=== PATIENT | female | born 1990 | race African-American/Black ===

== ENCOUNTER 2017-07-28 21:02 | Emergency (ER) | payer OTHER ==
[~2017-07-28] VITALS: Ht 167.6 cm; Wt 59.0 kg
[2017-07-28] MEDS ORDERED: SODIUM CHLORIDE 0.9% 1,000 ML IV ONE (21:49)
[2017-07-28] MEDS ORDERED: DIPHENHYDRAMINE 50MG/ML VIAL IV ONE (22:00)
[2017-07-28] MEDS ORDERED: KETOROLAC 30MG/ML VIAL IV ONE (22:00)
[2017-07-28] MEDS ORDERED: METOCLOPRAMIDE HCL 10MG/2ML VIAL IV ONE (22:00)
[2017-07-28 22:55] LABS: BASOPHILS % 0.7 % (0.0-2.0); EOSINOPHILS % 1.3 % (0.0-5.0); HEMATOCRIT. 33.4 % (36.0-48.0); HEMOGLOBIN. 11.5 g/dL (12.0-16.0); LYMPHOCYTES % 29.7 % (20.0-50.0); MEAN CORPUSCULAR HEMOGLOBIN 33.1 pg (28.0-32.0); MEAN CORPUSCULAR VOLUME 96.4 fL (81.0-99.0); MEAN PLATELET VOLUME 7.8 fl (7.4-10.4); MONOCYTES % 8.9 % (2.0-8.0); NEUTROPHILS % 59.4 % (40.0-76.0); PLATELET 238 x1000/uL (130-400); RED BLOOD CELL COUNT 3.47 mill/uL (4.2-5.4); RED CELL DISTRIBUTION WIDTH 12.8 % (11.6-14.6)
[2017-07-28 23:00] LABS: CHLORIDE 107 mEq/L (98-107)
[2017-07-28 23:05] LABS: CARBON DIOXIDE 27 mEq/L (21-32)
[2017-07-28 23:07] LABS: HCG SCREEN NEGATIVE
[2017-07-29 01:14] VITALS: BP 127/74
== END 2017-07-29 01:16 | disposition home or self-care (01) ==
LOC: ER 21:13
DX: R51 Headache (principal); F17.200 Nicotine dependence, unspecified, uncomplicated
CPT/HCPCS: 36415; 80048; 84703; 85025; 93005; 96361; 96374; 96375; 99285; J1200; J1885; J2765; J7030

== ENCOUNTER 2021-08-10 11:25 | Emergency (ER) | payer SELFPAY ==
[~2021-08-10] VITALS: Ht 167.6 cm; Wt 75.0 kg
[2021-08-10] MEDS ORDERED: ONDANSETRON HCL 4MG/2ML INJ IV STA (11:31)
[2021-08-10] MEDS ORDERED: SODIUM CHLORIDE 0.9% 1,000 ML IV ONE (11:45)
[2021-08-10 12:11] LABS: BASOPHILS % 0.7 % (0.0-2.0); EOSINOPHILS % 0.1 % (0.0-5.0); HEMATOCRIT. 37.1 % (36.0-48.0); HEMOGLOBIN. 12.6 g/dL (12.0-16.0); LYMPHOCYTES % 16.9 % (20.0-50.0); MEAN CORPUSCULAR HEMOGLOBIN 32.9 pg (28.0-32.0); MEAN CORPUSCULAR VOLUME 96.8 fL (81.0-99.0); MEAN PLATELET VOLUME 7.7 fl (7.4-10.4); MONOCYTES % 3.7 % (2.0-8.0); NEUTROPHILS % 78.6 % (40.0-76.0); PLATELET 310 x1000/uL (130-400); RED BLOOD CELL COUNT 3.83 mill/uL (4.2-5.4); RED CELL DISTRIBUTION WIDTH 12.6 % (11.6-14.6)
[2021-08-10 12:18] LABS: CHLORIDE 110 mEq/L (98-107)
[2021-08-10 14:16] VITALS: BP 112/69
== END 2021-08-10 14:18 | disposition home or self-care (01) ==
LOC: ER 11:25
DX: E86.0 Dehydration (principal); F10.10 Alcohol abuse, uncomplicated; R11.2 Nausea with vomiting, unspecified
CPT/HCPCS: 36415; 80053; 81025; 83690; 85025; 96361; 96374; 99283; J2405; J7030

== ENCOUNTER 2021-12-08 14:55 | Emergency (ER) | payer MEDICAID ==
[~2021-12-08] VITALS: Ht 165.1 cm; Wt 77.0 kg
[2021-12-08] MEDS ORDERED: IBUPROFEN 600MG TABLET PO ONE (18:45)
[2021-12-08 19:07] VITALS: BP 110/69
[2021-12-08] MEDS ORDERED: IBUP-2029 MT (19:07)
== END 2021-12-08 19:46 | disposition home or self-care (01) ==
LOC: ER 14:55
DX: S20.212A Contusion of left front wall of thorax, initial encounter (principal); S60.222A Contusion of left hand, initial encounter; Z88.3 Allergy status to other anti-infective agents; Y04.0XXA Assault by unarmed brawl or fight, initial encounter; Y07.03 Male partner, perpetrator of maltreatment and neglect; Y93.89 Activity, other specified; Y92.018 Other place in single-family (private) house as the place of occurrence of the external cause
CPT/HCPCS: 71101; 73130; 99284

== ENCOUNTER 2022-03-30 16:35 | Emergency (ER) | payer MEDICAID ==
[~2022-03-30] VITALS: Ht 205.7 cm; Wt 75.0 kg
[~2022-03-30 16:35] MED LIST: IBUP-2029 MT
[2022-03-30 16:44] VITALS: BP 153/87
== END 2022-03-30 20:30 | disposition left against medical advice (07) ==
LOC: ER 16:35
DX: Z53.21 Procedure and treatment not carried out due to patient leaving prior to being seen by health care provider (principal)

== ENCOUNTER 2023-06-20 19:37 | Emergency (ER) | payer MEDICAID ==
[~2023-06-20] VITALS: Ht 165.1 cm; Wt 68.0 kg
[2023-06-20 20:07] VITALS: BP 141/91; PULSE 103; RESP 20; O2SAT 98
[2023-06-20] MEDS ORDERED: NIRM1TAB PO (22:00)
== END 2023-06-20 22:11 | disposition home or self-care (01) ==
LOC: ER 19:37
DX: U07.1 COVID-19 (principal); R09.81 Nasal congestion; R05.9 Cough, unspecified
CPT/HCPCS: 93005; 99283

== ENCOUNTER 2024-04-09 11:56 | Emergency (ER) | payer MEDICAID ==
[~2024-04-09] VITALS: Ht 165.1 cm; Wt 68.0 kg
[~2024-04-09 11:56] MED LIST changes: +NIRM1TAB PO
[2024-04-09 12:01] VITALS: O2SAT 97
[2024-04-09 12:27] LABS: CLARITY URINE CLEAR (CLEAR); COLOR URINE YELLOW (YELLOW); GLUCOSE URINE NEGATIVE (NEGATIVE); KETONES URINE NEGATIVE (NEGATIVE); LEUKOCYTE ESTERASE URINE NEGATIVE (NEGATIVE); NITRITE URINE NEGATIVE (NEGATIVE); OCCULT BLOOD URINE NEGATIVE (NEGATIVE); PROTEIN URINE NEGATIVE (NEGATIVE); SPECIFIC GRAVITY URINE 1.024 (1.005-1.030)
[2024-04-09 13:06] LABS: BASOPHILS % 0.7 % (0.0-2.0); DIFFERENTIAL COMMENT 0; EOSINOPHILS % 0.8 % (0.0-5.0); HEMATOCRIT. 38.1 % (36.0-48.0); HEMOGLOBIN. 12.4 g/dL (12.0-16.0); LYMPHOCYTES % 24.7 % (20.0-50.0); MEAN CORPUSCULAR HGB CONC 32.5 g/dL (31.0-37.0); MEAN CORPUSCULAR VOLUME 101.6 fL (81.0-99.0); MONOCYTES % 6.4 % (2.0-8.0); NEUTROPHILS % 67.4 % (40.0-76.0); PLATELET 265 x1000/uL (130-400); RED BLOOD CELL COUNT 3.75 mill/uL (4.2-5.4); RED CELL DISTRIBUTION WIDTH 12.8 % (11.6-14.6); WHITE BLOOD COUNT 6.4 x1000/uL (4.5-11.0)
[2024-04-09 13:21] LABS: CARBON DIOXIDE 25 mEq/L (21-32); CHLORIDE 109 mEq/L (98-107); SODIUM 141 mEq/L (136-145)
[2024-04-09 13:22] LABS: CALCIUM 9.4 mg/dL (8.7-10.4)
[2024-04-09 13:26] LABS: CREATININE 0.8 mg/dL (0.6-1.0)
[2024-04-09 13:27] LABS: GLUCOSE 78 mg/dL (70-105); UREA NITROGEN BLOOD 13 mg/dL (9-23)
[2024-04-09 13:29] LABS: ALANINE AMINOTRANSFERASE 25 IU/L (10-49); ALBUMIN 4.3 g/dL (3.2-4.8); ASPARTATE AMINOTRANSFERASE 23 IU/L (<34); BILIRUBIN DIRECT 0.1 mg/dL (<=3.0); BILIRUBIN TOTAL 0.5 mg/dL (0.1-1.0); PROTEIN TOTAL 7.4 g/dL (6.0-8.3)
[2024-04-09] MEDS ORDERED: FAMOTIDINE 20MG/2ML VIAL IV STA (14:10)
[2024-04-09] MEDS ORDERED: ONDANSETRON HCL 4MG/2ML INJ IV STA (14:10)
[2024-04-09 14:53] LABS: HCG SCREEN NEGATIVE
[2024-04-09] MEDS: SODIUM CHLORIDE 0.9% 1,000 ML IV ONE (16:00)
[2024-04-09] MEDS: ONDANSETRON HCL 4MG/2ML INJ IV NR (17:00)
[2024-04-09] MEDS: FAMOTIDINE 20MG/2ML VIAL IV NR (17:05)
[2024-04-09] MEDS ORDERED: FAMO-135 MT (17:32)
[2024-04-09] MEDS ORDERED: ONDA4TAB50 MT (17:32)
[2024-04-09 18:40] VITALS: BP 116/79; PULSE 80; RESP 17; TEMP 36.66960; O2SAT 100
== END 2024-04-09 18:50 | disposition home or self-care (01) ==
LOC: ER 11:56
DX: K57.30 Diverticulosis of large intestine without perforation or abscess without bleeding (principal); Z88.3 Allergy status to other anti-infective agents; Z79.899 Other long term (current) drug therapy
CPT/HCPCS: 80076; 80048; 81003; 84703; 83690; 85025; 36415; 74176; 96361; 96374; 96375; 99285; J3490; J2405; J7030; Z7610 ×2